=== PATIENT | female | born 1935 | race Caucasian/White ===

== ENCOUNTER 2018-12-14 10:28 | Inpatient (IN) | payer MEDICARE, OTHER ==
[~2018-12-14] VITALS: Ht 162.6 cm; Wt 68.5 kg
--- NOTE | 2018-12-14 10:40 | NUR ---
aaox3, came to er c/o RLQ abdominal pain since yesterday. Also c/o right upper back pain. RR is even and unlabored with NAD noted. Skin is warm and dry. Awaiting MD for eval.
[2018-12-14 11:14] LABS: APPEARANCE,URINE Clear (CLEAR); BILIRUBIN,URINE Negative (NEGATIVE); BLOOD, URINE Small Ery/uL (NEGATIVE); COLOR,URINE Yellow (YELLOW); KETONES,URINE Negative (NEGATIVE); LEUKOCYTE ESTERASE ,URINE Negative (NEGATIVE); NITRITE, URINE Negative (NEGATIVE); PROTEIN,URINE 100 mg/dl (NEGATIVE); UGLUCOSE Negative (NEGATIVE); UROBILINOGEN,URINE 0.2 EU/dL (0.2)
[2018-12-14 11:18] LABS: BASOPHILS % (AUTO) 0.2 % (0.0-2.0); EOSINOPHILS % (AUTO) 0.1 % (0.0-6.0); HEMATOCRIT 37 % (33-45); HEMOGLOBIN 12.1 g/dL (11.5-14.8); LYMPHOCYTES # (AUTO) 1.8 /CMM (0.8-4.8); LYMPHOCYTES % (AUTO) 11.2 % (20.0-44.0); MEAN CORPUSCULAR HGB CONC 33 g/dl (31.0-36.0); MEAN CORPUSCULAR VOLUME 95 fL (82-100); MONOCYTES # (AUTO) 1.1 /CMM (0.1-1.30); MONOCYTES % (AUTO) 6.6 % (2.0-12.0); NEUTROPHILS # (AUTO) 13.5 /CMM (1.8-8.9); NEUTROPHILS % (AUTO) 81.9 % (43.0-81.0); PLATELET COUNT (AUTO) 179 /CMM (150-450); RED BLOOD CELL COUNT(AUTO) 3.89 MIL/uL (4.0-5.2); WHITE BLOOD COUNT (AUTO) 16.5 K/uL (4.3-11.0)
[2018-12-14 11:24] LABS: BACTERIA,URINE Rare /HPF (None Seen); SQUAMOUS EPITHELIAL CELL,UR Moderate /HPF (None Seen); WBC,URINE NONE SEEN /HPF (0-3)
[2018-12-14 11:30] LABS: CALCIUM, SERUM 10.6 mg/dL (8.5-10.1); CARBON DIOXIDE 26 mmol/L (21-32); CHLORIDE 103 mmol/L (98-107); CREATININE 1.6 mg/dL (0.6-1.3); GLUCOSE 145 mg/dL (74-106); POTASSIUM 4.5 mmol/L (3.5-5.1); SODIUM SERUM 137 mmol/L (136-145); UREA NITROGEN, BLOOD 25 mg/dL (7-18)
[2018-12-14 11:36] LABS: ALANINE AMINOTRANSFERASE 30 U/L (12-78); ALBUMIN 3.7 g/dL (3.4-5.0); ALKALINE PHOSPHATASE 92 U/L (46-116); ASPARTATE AMINOTRANSFERASE 43 U/L (15-37); BILIRUBIN,DIRECT 0.3 mg/dL (0.0-0.2); TOTAL PROTEIN, SERUM 7.3 g/dL (6.4-8.2)
[2018-12-14 11:56] LABS: LIPASE 18592 U/L (73-393)
--- NOTE | 2018-12-14 12:55 | NUR ---
CALLED NURSING SUP. FOR MS BED
[2018-12-14] MEDS ORDERED: ZOLPIDEM TARTRATE 5 MG TABLET PO PRN (13:00)
[2018-12-14] MEDS ORDERED: HYDROCODONE/APAP 5/325MG 1 EACH TABLET PO PRN (13:00)
[2018-12-14] MEDS ORDERED: MAGNESIUM HYDROXIDE 30 ML UDC PO PRN (13:00)
[2018-12-14] MEDS ORDERED: MAG HYDROX/AL HYDROX/SIMETH 30 ML UDC PO PRN (13:00)
[2018-12-14] MEDS ORDERED: Z GUARD REMEDY 2 OZ OINT TP PRN (13:00)
[2018-12-14] MEDS ORDERED: ACETAMINOPHEN 325 MG TABLET PO PRN (13:00)
[2018-12-14] MEDS ORDERED: IV NS 0.9% 1,000 ML BAG IV ONE (13:00)
[2018-12-14] MEDS ORDERED: ALEN70TA3 PO (13:18)
[2018-12-14] MEDS ORDERED: VALS80TA2 PO (13:18)
[2018-12-14] MEDS ORDERED: LEVO100T9 PO (13:18)
[2018-12-14] MEDS ORDERED: ROSU10TA28 PO (13:18)
[2018-12-14] MEDS ORDERED: AMLO2.5T2 PO (13:18)
[2018-12-14] MEDS ORDERED: CARV6.252 PO (13:18)
[2018-12-14] MEDS ORDERED: HYDR-3976 PO (13:18)
[2018-12-14] MEDS ORDERED: ALLO300T2 PO (13:18)
--- NOTE | 2018-12-14 13:19 | NUR ---
REPORT GIVEN TO SILVER RAYA FOR SERGEY MS [id number]
[2018-12-14] MEDS: IV NS 0.9% 1,000 ML IV SCH ×2 (13:54→23:08)
--- NOTE | 2018-12-14 13:55 | NUR ---
RN MS NOTES Patient received on room air, no sob or ventilatory distress noted. Patient a/o x4. Patient states that she is "not in too much pain". Vital signs stable. Patient's call light within reach, safety measures in place.
[2018-12-14 14:00] VITALS: BP 159/83
[2018-12-14 16:00] VITALS: BP 148/76
[2018-12-14] MEDS ORDERED: PANTOPRAZOLE 40 MG VIAL IV SCH (17:00)
[2018-12-14] MEDS ORDERED: LORAZEPAM INJ 2 MG/ML VIAL IV ONE (17:30)
[2018-12-14 17:32] LABS: BASOPHILS % (AUTO) 0.2 % (0.0-2.0); EOSINOPHILS % (AUTO) 0.3 % (0.0-6.0); HEMATOCRIT 33 % (33-45); HEMOGLOBIN 11.2 g/dL (11.5-14.8); LYMPHOCYTES # (AUTO) 1.9 /CMM (0.8-4.8); LYMPHOCYTES % (AUTO) 13.2 % (20.0-44.0); MEAN CORPUSCULAR HGB CONC 34 g/dl (31.0-36.0); MEAN CORPUSCULAR VOLUME 92 fL (82-100); MONOCYTES # (AUTO) 1.1 /CMM (0.1-1.30); MONOCYTES % (AUTO) 7.6 % (2.0-12.0); NEUTROPHILS # (AUTO) 11.2 /CMM (1.8-8.9); NEUTROPHILS % (AUTO) 78.7 % (43.0-81.0); PLATELET COUNT (AUTO) 155 /CMM (150-450); RED BLOOD CELL COUNT(AUTO) 3.58 MIL/uL (4.0-5.2); WHITE BLOOD COUNT (AUTO) 14.3 K/uL (4.3-11.0)
[2018-12-14 17:49] LABS: ALBUMIN 3.3 g/dL (3.4-5.0); BILIRUBIN,DIRECT 0.2 mg/dL (0.0-0.2); BILIRUBIN,TOTAL 0.8 mg/dL (0.2-1.0); TOTAL PROTEIN, SERUM 6.5 g/dL (6.4-8.2)
[2018-12-14] MEDS ORDERED: ZOSYN IVPB 3.375 G in IV D5W 50ml IV ONE (18:00)
--- NOTE | 2018-12-14 19:09 | NUR ---
RN CLOSING NOTES Patient is back from her CT scan of her abdomen pelvis, patient was given ativan before the procedure. Patient is now back comfortably in her room, no sob or ventilatory distress noted. Patient remains on room air and has her call light in reach. Safety measures in place.
--- NOTE | 2018-12-14 19:30 | NUR ---
MS/RN OPENING NOTES PT RECEIVED AWAKE, USING HER TABLET. ON ROOM AIR, BREATHING EVEN AND UNLABORED. NO C/O OF SOB OR PAIN AT THIS TIME. TYLENOL AND ATIVAN GIVEN EARLIER WAS EFFECTIVE. IV TO LEFT HAND PATENT AND INTACT RUNNING IVF ORDERED. BED IN LOW/LOCKED POSITION WITH CALL LIGHT IN REACH, BILATERAL UPPER SIDE RAILS IN PLACE AND HOB ELEVATED. WILL CONTINUE TO MONITOR
[2018-12-14 20:00] VITALS: BP 111/64
[2018-12-14] MEDS: ONDANSETRON HCL/PF 4 MG/2 ML VIAL IVP PRN (23:15)
[2018-12-14] MEDS: HYDROMORPHONE 1 MG/1 ML DISP.SYRIN IV PRN (23:15)
--- NOTE | 2018-12-15 | NUR ---
MS/RN NOTES BRAYDON ANDREWS FOLLOWED UP WITH MRCP RESULTS. PROVIDED AM CBC AND LATEST VITALS. PT WITH SLIGHTLY DISTENDED, TENDER AND FIRM ABDOMEN. WITH ORDERS TO CONSULT DR. WILHELM FOR SURGERY FIRST THING IN THE AM. ALSO TO MAKE SURE PT IS ON PROTONIX 40MG IV BID. ORDERED NOTED AND CHANGED IN EMAR, ALSO NOTIFIED SHABNAM ANDREWS THAT THERE IS A SHORTAGE OF IV PROTONIX PER PHARMACY.
[2018-12-15] MEDS: PIPERACILLIN /TAZOBACTAM 3.375 G in IV D5W 100 ML IV SCH ×3 (02:22→18:24)
--- NOTE | 2018-12-15 05:56 | NUR ---
NOTIFIED DR. WILHELM FOR SURGICAL CONSULT PER REQUEST OF BRAYDON ANDREWS.
[2018-12-15 06:33] LABS: BASOPHILS % (AUTO) 0.1 % (0.0-2.0); EOSINOPHILS % (AUTO) 0.4 % (0.0-6.0); HEMATOCRIT 35 % (33-45); HEMOGLOBIN 11.7 g/dL (11.5-14.8); LYMPHOCYTES # (AUTO) 1.4 /CMM (0.8-4.8); LYMPHOCYTES % (AUTO) 9.7 % (20.0-44.0); MEAN CORPUSCULAR HGB CONC 34 g/dl (31.0-36.0); MEAN CORPUSCULAR VOLUME 94 fL (82-100); MONOCYTES % (AUTO) 6.9 % (2.0-12.0); NEUTROPHILS # (AUTO) 11.7 /CMM (1.8-8.9); NEUTROPHILS % (AUTO) 82.9 % (43.0-81.0); PLATELET COUNT (AUTO) 158 /CMM (150-450); RED BLOOD CELL COUNT(AUTO) 3.72 MIL/uL (4.0-5.2); WHITE BLOOD COUNT (AUTO) 14.1 K/uL (4.3-11.0)
[2018-12-15 06:35] LABS: CHOLESTEROL 95 mg/dL (<200); HDL CHOLESTEROL 42 mg/dL (40-60); LDL 47 mg/dL (0-99); TRIGLYCERIDES 74 mg/dL (30-150)
[2018-12-15] MEDS: HYDROMORPHONE 1 MG/1 ML DISP.SYRIN IV PRN ×4 (06:38→21:51)
[2018-12-15 06:43] LABS: CALCIUM, SERUM 9.3 mg/dL (8.5-10.1); CHLORIDE 107 mmol/L (98-107); CREATININE 1.5 mg/dL (0.6-1.3); GLUCOSE 116 mg/dL (74-106); MAGNESIUM 1.6 mg/dL (1.8-2.4); PHOSPHORUS 3.1 mg/dL (2.5-4.9); POTASSIUM 4.1 mmol/L (3.5-5.1); SODIUM SERUM 142 mmol/L (136-145); UREA NITROGEN, BLOOD 20 mg/dL (7-18)
--- NOTE | 2018-12-15 06:56 | NUR ---
MS/RN CLOSING NOTES PT ASLEEP, OPENS EYES TO NAME. PLACED ON 2L O2 VIA NC, BREATHING EVEN AND UNLABORED. DENIES SOB, PAIN 8/10 TO ABDOMEN. PRN PAIN MEDS PROVIDED. BRAYDON AWARE OF MRCP AND ASKED TO NOTIFY DR. WILHELM FOR SURGICAL CONSULT THIS AM, "ITS URGENT". SPOKE TO DR. WILHELM THIS AM AND AWARE TO COME SEE THE PT EARLY TODAY. KEPT NPO. DENIES FLATUS, ABDOMEN TENDER, SLIGHTLY DISTENDED AND SLIGHTLY FIRM. AMBULATORY TO BATHROOM WITH CANE AND STANDBY ASSIST. IV TO LEFT HAND PATENT AND INTACT RUNNING IVF ORDERED. KEPT COMFORTABLE DURING SHIFT. ALL NEEDS MET. BED REMAINS IN LOW/LOCKED POSITION WITH CALL LIGHT IN REACH, BILATERAL UPPER SIDE RAILS IN PLACE AND HOB ELEVATED. WILL ENDORSE TO DAY SHIFT RN SERGEY.
[2018-12-15 06:58] LABS: CARBON DIOXIDE 25 mmol/L (21-32)
[2018-12-15 08:00] VITALS: BP 147/76
--- NOTE | 2018-12-15 08:42 | NUR ---
RN MS NOTES PT IN BED, AWAKE, ALERT AND ORIENTED, STATED THAT SHE HAS ABDOMINAL PAIN WHEN SHE AMBULATES, IV FLUIDS INFUSING WELL, RECEIVED CALL FROM DR. WILHELM, PLAN OF CARE DISCUSSED FOR PT, PT INFORMED, PT SEEN BY DR. KAPOOR, PLAN OF CARE DISCUSSED WITH PT, VERBALIZED UNDERSTANDING, CALL LIGHT DENEEN HERRMANN, NEEDS ATTENDED.
[2018-12-15] MEDS: Magnesium 1GM/D5W 100ML PREMIX 100 ML IV SCH ×2 (09:24→10:28)
[2018-12-15] MEDS: PANTOPRAZOLE 40 MG VIAL IV SCH ×2 (12:19→21:44)
[2018-12-15] MEDS: ONDANSETRON HCL/PF 4 MG/2 ML VIAL IVP PRN (14:00)
[2018-12-15 16:00] VITALS: BP 144/80
--- NOTE | 2018-12-15 18:07 | NUR ---
RN MS CLOSING NOTES Patient remains lying down most of the time, patient gets up to go to the restroom using her cane, minimal assistance needed but would be more safe if someone watches her ambulate going to the restroom. Patient stated that pain is more controlled but still exist. Patient also states that her nausea is relieved by medications. Patient aware of the needs to be transferred to a different hospital because of the ERCP procedure that cannot be done here. Patient remains NPO, vital signs stable. Patients call light within reach and all safety measures are on.
--- NOTE | 2018-12-15 19:00 | NUR ---
RN MS OPENING NOTES RECEIVED PATIENT IN BED AWAKE ALERT AND ORIENTED X 4 RESPIRATIONS EVEN AND UNLABORED WITH EQUAL RISE AND FALL OF CHEST DENIES ANY PAIN OR DISCOMFORT, IV SITE TO LEFT HAND #20 G INTACT AND PATENT,NO REDNESS, NO INFILTRATION PRESENT, PATIENT IS NPO, ORIENTED TO STAFF AND CALL LIGHT ALL NEEDS ATTENDED, REMAINS COMFORTABLE WILL CONTINUE TO MONITOR.
[2018-12-15 20:00] VITALS: BP 121/69
--- NOTE | 2018-12-15 21:44 | NUR ---
SILVER MS NOTES PROTONIX IV GIVEN AT THIS TIME, PER REPORT PROTONIX SHORTAGE BUT MEDICATION WILL BE SENT IN [facility].
--- NOTE | 2018-12-15 21:51 | NUR ---
RN MS NOTES PATIENT COMPLAIN OF PAIN TO ABDOMEN AREA 5/10 CONSTANT PAIN REQUESTING FOR DILAUDID, PRN GIVEN 0.25MG GIVEN AND REST WASTED AND VERIFIED WITH ANOTHER RN VS WNL.
[2018-12-16] MEDS: HYDROMORPHONE 1 MG/1 ML DISP.SYRIN IV PRN ×4 (02:43→23:18)
[2018-12-16] MEDS: PIPERACILLIN /TAZOBACTAM 3.375 G in IV D5W 100 ML IV SCH ×3 (02:44→18:25)
[2018-12-16] MEDS: IV NS 0.9% 1,000 ML IV PRN (02:44)
[2018-12-16 06:28] LABS: BASOPHILS % (AUTO) 0.1 % (0.0-2.0); EOSINOPHILS % (AUTO) 0.1 % (0.0-6.0); HEMATOCRIT 36 % (33-45); HEMOGLOBIN 12.2 g/dL (11.5-14.8); LYMPHOCYTES # (AUTO) 1.4 /CMM (0.8-4.8); LYMPHOCYTES % (AUTO) 6.7 % (20.0-44.0); MEAN CORPUSCULAR HGB CONC 34 g/dl (31.0-36.0); MEAN CORPUSCULAR VOLUME 93 fL (82-100); MONOCYTES # (AUTO) 1.4 /CMM (0.1-1.30); MONOCYTES % (AUTO) 6.8 % (2.0-12.0); NEUTROPHILS # (AUTO) 17.7 /CMM (1.8-8.9); NEUTROPHILS % (AUTO) 86.3 % (43.0-81.0); PLATELET COUNT (AUTO) 164 /CMM (150-450); RED BLOOD CELL COUNT(AUTO) 3.88 MIL/uL (4.0-5.2); WHITE BLOOD COUNT (AUTO) 20.5 K/uL (4.3-11.0)
[2018-12-16 06:46] LABS: CALCIUM, SERUM 9.2 mg/dL (8.5-10.1); CARBON DIOXIDE 25 mmol/L (21-32); CHLORIDE 107 mmol/L (98-107); CREATININE 1.7 mg/dL (0.6-1.3); GLUCOSE 128 mg/dL (74-106); MAGNESIUM 2.1 mg/dL (1.8-2.4); POTASSIUM 3.9 mmol/L (3.5-5.1); SODIUM SERUM 141 mmol/L (136-145); UREA NITROGEN, BLOOD 20 mg/dL (7-18)
--- NOTE | 2018-12-16 07:05 | NUR ---
RN MS CLOSING NOTES PATIENT IN BED AWAKE ALERT AND ORIENTED X 4 RESPIRATIONS EVEN AND UNLABORED WITH EQUAL RISE AND FALL OF CHEST DENIES ANY PAIN OR DISCOMFORT, IV SITE TO LEFT HAND #20 G INTACT AND PATENT,NO REDNESS, NO INFILTRATION PRESENT, IVF RUNNING ORDERED, PATIENT IS NPO, CALL LIGHT KEPT WITHIN REACH, ALL NEEDS ATTENDED, REMAINS COMFORTABLE WILL CONTINUE TO MONITOR AND ENDORSE TO NEXT SHIFT.
[2018-12-16 07:20] LABS: LIPASE 1825 U/L (73-393)
--- NOTE | 2018-12-16 08:00 | NUR ---
m/s university tutor: notes received pt in bed awake, a/ox4. pt remains npo, pending transfer to another acute hospital for ercp. case management making arrangement. no c/o pain at this time. instructed to call for assistance. will monitor.
[2018-12-16 08:23] VITALS: BP 132/68
[2018-12-16] MEDS: PANTOPRAZOLE 40 MG VIAL IV SCH ×2 (08:45→18:26)
--- NOTE | 2018-12-16 09:21 | NUR ---
m/s detasseler: notes c/o 01/08 abdominal pain, medicated with dilaudid 0.25mg ivp by rn. instructed to call for assistance. daughter at bedside. will monitor.
--- NOTE | 2018-12-16 09:51 | NUR ---
m/s sushi chef: notes pt sounds asleep at this time. no distress noted. daughter remains at bedside. will monitor.
--- NOTE | 2018-12-16 14:44 | NUR ---
m/s berry picker: notes c/o 01/08 abdominal pain, medicated with dilaudid 0.25mg ivp by rn. instructed to call for assistance. daughter remains at bedside. will monitor.
--- NOTE | 2018-12-16 15:14 | NUR ---
m/s overlock elastic attacher: notes pt sounds asleep at this time. no distress noted. daughter remains at bedside. will monitor.
--- NOTE | 2018-12-16 17:35 | NUR ---
m/s collaborating supervising physician: notes dr. maldonado on the phone and informed md that pt home meds hasn't been reconciled, pt remains npo with order to hold all meds for now. orders carried out and acknowledged.
--- NOTE | 2018-12-16 19:00 | NUR ---
m/s family practice physician assistant: notes resting comfortable in bed with no distress noted. needs attended. instructed to call for assistance. will continue to monitor.
--- NOTE | 2018-12-16 19:00 | NUR ---
RN MS OPENING NOTES RECEIVED PATIENT IN BED AWAKE ALERT AND ORIENTED X 4 RESPIRATIONS EVEN AND UNLABORED WITH EQUAL RISE AND FALL OF CHEST DENIES ANY PAIN OR DISCOMFORT, IV SITE TO RIGHT HAND #20 G INTACT AND PATENT,NO REDNESS, NO INFILTRATION PRESENT, PATIENT IS NPO, ORIENTED TO STAFF AND CALL LIGHT ALL NEEDS ATTENDED, REMAINS COMFORTABLE WILL CONTINUE TO MONITOR.
[2018-12-16 20:00] VITALS: BP_SYST 132; BP_SYST 135; BP_DIAS 68; BP_DIAS 83
--- NOTE | 2018-12-16 23:18 | NUR ---
RN MS NOTES PATIENT REQUESTING FOR DILAUDID 03/10 TO RIGHT ABDOMEN, DILAUDID 0.25MG GIVEN ORDERED, THE REST WASTED WITH ANOTHER RN AND VERIFIED. VS WNL
[2018-12-17] MEDS: PIPERACILLIN /TAZOBACTAM 3.375 G in IV D5W 100 ML IV SCH ×3 (02:26→17:10)
--- NOTE | 2018-12-17 05:08 | NUR ---
RN MS NOTES PATIENT COMPLAINT OF FEELING OF INDIGESTION BURNING FEELING IN STOMACH REQUESTING TO ASK MD FOR POSSIBLE MEDICATION FOR RELIEF. KEON RICO MADE AWARE PATIENT DX ACUTE PANCREATITIS, NPO, WITH NEW ORDER FOR 1 TAB TUMS PO X1 FOR INDIGESTION PATIENT MADE AWARE.
[2018-12-17] MEDS ORDERED: CALCIUM CARBONATE 500 MG TAB.CHEW PO ONE (05:30)
[2018-12-17 06:47] LABS: BASOPHILS % (AUTO) 0.3 % (0.0-2.0); EOSINOPHILS % (AUTO) 0.1 % (0.0-6.0); HEMATOCRIT 32 % (33-45); HEMOGLOBIN 10.9 g/dL (11.5-14.8); LYMPHOCYTES # (AUTO) 1.2 /CMM (0.8-4.8); LYMPHOCYTES % (AUTO) 6.1 % (20.0-44.0); MEAN CORPUSCULAR HGB CONC 34 g/dl (31.0-36.0); MEAN CORPUSCULAR VOLUME 92 fL (82-100); MONOCYTES # (AUTO) 1.3 /CMM (0.1-1.30); NEUTROPHILS # (AUTO) 16.4 /CMM (1.8-8.9); NEUTROPHILS % (AUTO) 86.5 % (43.0-81.0); PLATELET COUNT (AUTO) 177 /CMM (150-450); RED BLOOD CELL COUNT(AUTO) 3.49 MIL/uL (4.0-5.2)
[2018-12-17 06:59] LABS: CALCIUM, SERUM 9.2 mg/dL (8.5-10.1); CARBON DIOXIDE 24 mmol/L (21-32); CHLORIDE 110 mmol/L (98-107); CREATININE 1.5 mg/dL (0.6-1.3); GLUCOSE 129 mg/dL (74-106); POTASSIUM 3.5 mmol/L (3.5-5.1); SODIUM SERUM 145 mmol/L (136-145); UREA NITROGEN, BLOOD 23 mg/dL (7-18)
--- NOTE | 2018-12-17 06:59 | NUR ---
RN MS CLOSING NOTES RECEIVED PATIENT IN BED AWAKE ALERT AND ORIENTED X 4 RESPIRATIONS EVEN AND UNLABORED WITH EQUAL RISE AND FALL OF CHEST DENIES ANY PAIN OR DISCOMFORT, IV SITE TO RIGHT HAND #20 G INTACT AND PATENT,NO REDNESS, NO INFILTRATION PRESENT, PATIENT IS NPO,IVF RUNNING ORDERED, [facility] CALLED INFORMED NO BED AVAILABLE AT THIS TIME, CALL LIGHT KEPT WITHIN REACH, SAFETY PRECAUTIONS IN PLACE,LOW BED AND LOCKED, CANE WITHIN REACH, ALL NEEDS ATTENDED, REMAINS COMFORTABLE WILL CONTINUE TO MONITOR AND ENDORSE TO NEXT SHIFT.
--- NOTE | 2018-12-17 07:30 | NUR ---
MS/RN - Assessment Patient in bed awake, A/O x 4, afebrile, denies abdominal pain at this time, no c/o n/v, remain NPO. IVF NS at 125 ml/hr infusing well on the RFA with no signs of infiltration. Still waiting for bed at [facility] for ERCP, case management making arrangement. Fall precautions maintained. Will continue with current medical management.
[2018-12-17 08:00] VITALS: BP 145/76
[2018-12-17] MEDS: HYDROMORPHONE 1 MG/1 ML DISP.SYRIN IV PRN ×3 (08:57→21:11)
[2018-12-17] MEDS: ONDANSETRON HCL/PF 4 MG/2 ML VIAL IVP PRN ×2 (08:57→15:07)
--- NOTE | 2018-12-17 09:00 | NUR ---
MS/RN - Notes Rounds made, no needs at this time, due meds given. Daughter Mey at bedside updated on plan of care. Still awaiting for bed at [facility].
[2018-12-17] MEDS: IV NS 0.9% 1,000 ML IV PRN (09:12)
[2018-12-17] MEDS: PANTOPRAZOLE 40 MG VIAL IV SCH ×2 (09:12→16:16)
--- NOTE | 2018-12-17 11:30 | NUR ---
MS/RN - Notes Patient resting comfortably, all needs attended, will continue to monitor.
--- NOTE | 2018-12-17 15:10 | NUR ---
MS/RN - Notes Patient c/o abdominal pain 8/10 and nausea, medicated with Dilaudid 0.25 mg IVP and Zofran. Will reassess after 30 mins.
[2018-12-17 16:00] VITALS: BP 146/72
--- NOTE | 2018-12-17 17:37 | NUR ---
MS/RN - End of shift summary No significant change in condition seen, remain afebrile, abdominal pain and nausea relieved by PRN Dilaudid 0.25mg IV and Zofran. Continue IVF NS at 125 ml/hr to maintain hydration and Zosyn for acute pancreatitis. Per case management, still no bed availability at [facility], will continue to work on it. Patient and daughter Mey updated on plan of care. Will continue with current medical management
--- NOTE | 2018-12-17 19:10 | NUR ---
MS RN OPENING NOTES Received patient A/O X 4, awake on Ugarte's position on bed. With patent peripheral IV line infusing well as ordered, no s/sx of infiltration noted. Patient claimed with controlled pain at right abdomen but wants to take the medication later. On RA, no SOB/respiratory distress noted. Kept bed low and locked. Call light at bedside. Will continue to monitor accordingly.
[2018-12-17 20:00] VITALS: BP 140/75
--- NOTE | 2018-12-18 01:00 | NUR ---
MS RN NOTES 0045 Patient complaint pain. Explained to patient Diluadid 0.25mg is not due yet. Consulted MD on rounds for IV pain meds as patient is kept on NPO but MD said it's ok to give as patient is NPO except meds. Prepared [place] 5mg as ordered, but patient refused to take any PO meds. Explained to patient that MD has been notified and with instructions ok to take PO meds but patient insist to refused. Offered to patient to wait until Dilaudid is due. 0100 Rechecked patient, noted asleep at this time. Will continue to monitor accordingly.
[2018-12-18] MEDS: IV NS 0.9% 1,000 ML IV PRN (01:53)
[2018-12-18] MEDS: PIPERACILLIN /TAZOBACTAM 3.375 G in IV D5W 100 ML IV SCH ×3 (01:53→18:48)
[2018-12-18] MEDS: HYDROMORPHONE 1 MG/1 ML DISP.SYRIN IV PRN ×4 (04:57→17:53)
--- NOTE | 2018-12-18 06:41 | NUR ---
MS RN CLOSING NOTES Patient asleep on bed, easily awaken. No new unusualities noted. Medicated for pain, noted effective with Diluadid 0.25mg. All nursing needs attended. No new complaints made. Able to ambulate to bathroom independently with single point cane. Kept bed low and locked, siderails up, call light at bedside. Awaiting for transfer to [facility]. Endorsed to the next shift.
[2018-12-18 06:42] LABS: BASOPHILS # (AUTO) 0.1 /CMM (0.0-0.2); BASOPHILS % (AUTO) 0.3 % (0.0-2.0); EOSINOPHILS % (AUTO) 0.3 % (0.0-6.0); HEMATOCRIT 31 % (33-45); HEMOGLOBIN 10.7 g/dL (11.5-14.8); LYMPHOCYTES # (AUTO) 1.4 /CMM (0.8-4.8); LYMPHOCYTES % (AUTO) 8.5 % (20.0-44.0); MEAN CORPUSCULAR HGB CONC 35 g/dl (31.0-36.0); MEAN CORPUSCULAR VOLUME 93 fL (82-100); MONOCYTES # (AUTO) 1.3 /CMM (0.1-1.30); MONOCYTES % (AUTO) 7.8 % (2.0-12.0); NEUTROPHILS # (AUTO) 13.7 /CMM (1.8-8.9); NEUTROPHILS % (AUTO) 83.1 % (43.0-81.0); PLATELET COUNT (AUTO) 191 /CMM (150-450); RED BLOOD CELL COUNT(AUTO) 3.35 MIL/uL (4.0-5.2); WHITE BLOOD COUNT (AUTO) 16.6 K/uL (4.3-11.0)
[2018-12-18 06:47] LABS: CARBON DIOXIDE 25 mmol/L (21-32); CHLORIDE 113 mmol/L (98-107); CREATININE 1.4 mg/dL (0.6-1.3); GLUCOSE 108 mg/dL (74-106); LIPASE 1097 U/L (73-393); POTASSIUM 3.2 mmol/L (3.5-5.1); SODIUM SERUM 147 mmol/L (136-145); UREA NITROGEN, BLOOD 24 mg/dL (7-18)
[2018-12-18 08:00] VITALS: BP 147/75
[2018-12-18] MEDS ORDERED: POTASSIUM CHLORIDE 20 MEQ TAB.PRT.SR PO ONE (09:00)
[2018-12-18] MEDS: PANTOPRAZOLE 40 MG VIAL IV SCH ×2 (10:41→17:29)
[2018-12-18] MEDS: IV D5/0.45 NACL 1,000 ML IV PRN (12:03)
--- NOTE | 2018-12-18 12:30 | NUR ---
INSULIN HELD AT LUNCH-PT. HAS BEEN NPO AND JUST GOT BACK FROM SURGERY. Addendum: 12/18/18 at 2031 by RU MITTAL RN ABOVE NOTE ON INCORRECT PT.
[2018-12-18 16:00] VITALS: BP 176/93
[2018-12-18 16:15] VITALS: BP 140/90
--- NOTE | 2018-12-18 16:15 | NUR ---
PER WELDER FITTER REPORT BP ELEVATED,RECHECKED BY RN WITH MANUAL CUFF.SEE GRAPHIC.
--- NOTE | 2018-12-18 18:00 | NUR ---
POTASSIUM REPLACEMENT DONE,ON CLEAR LIQ. DIET AND SHE STATES PAIN INCREASES AFTER EATING.UP TO BATHRM. OFTEN,TOLERATES ACTIVITY.MED. X3 WITH DILAUDID FOR ABD. PAIN.DTR. AT BEDSIDE MOST OF DAY.
--- NOTE | 2018-12-18 19:42 | NUR ---
MS/RN OPENING NOTES RECEIVED PATIENT IN BED, ALERT, ORIENTED X3 ABLE TO VERBALIZE NEEDS,ON 2L OXYGEN VIA NC, ABLE TO PARTICIPATED WITH CARE, DISCUSSED PLAN OF CARE, SKIN WARM TO TOUCH, DENIES PAIN, STOMACH WITH SOME DISTENTION BUT DENIES PAIN, ON IV D5 1/2 NS AT 50CC/HR, WILL CONTINUE TO MONITOR, CALL LIGHTS WITHIN REACH, BED LOCKED. RECEIVED ENDORSEMENT FROM AM RN FOR SERGEY.
[2018-12-18 20:00] VITALS: BP_SYST 130; BP_SYST 153; BP_DIAS 70; BP_DIAS 83
--- NOTE | 2018-12-19 00:31 | NUR ---
MS/RN NOTES PATIENT ASSISTED TO BATHROOM SAFELY, NO PAIN REPORTED, IV SITE ON RIGHT WRIST CHECEKD FOR PATENCY/ WILL CONTIUE TO MONITOR.
[2018-12-19] MEDS: HYDROMORPHONE 1 MG/1 ML DISP.SYRIN IV PRN ×3 (01:27→16:17)
[2018-12-19] MEDS: PIPERACILLIN /TAZOBACTAM 3.375 G in IV D5W 100 ML IV SCH ×3 (01:28→17:36)
[2018-12-19] MEDS: ONDANSETRON HCL/PF 4 MG/2 ML VIAL IVP PRN ×2 (01:37→08:48)
--- NOTE | 2018-12-19 01:45 | NUR ---
hi reported pain in abdomen severe. di;audid given, also zofran for nausea will monitor.
[2018-12-19 06:33] LABS: BASOPHILS % (AUTO) 0.2 % (0.0-2.0); EOSINOPHILS % (AUTO) 0.2 % (0.0-6.0); HEMATOCRIT 32 % (33-45); HEMOGLOBIN 10.6 g/dL (11.5-14.8); LYMPHOCYTES # (AUTO) 1.3 /CMM (0.8-4.8); MEAN CORPUSCULAR HGB CONC 34 g/dl (31.0-36.0); MEAN CORPUSCULAR VOLUME 92 fL (82-100); MONOCYTES # (AUTO) 1.7 /CMM (0.1-1.30); MONOCYTES % (AUTO) 9.3 % (2.0-12.0); NEUTROPHILS # (AUTO) 15.4 /CMM (1.8-8.9); NEUTROPHILS % (AUTO) 83.3 % (43.0-81.0); PLATELET COUNT (AUTO) 194 /CMM (150-450); RED BLOOD CELL COUNT(AUTO) 3.43 MIL/uL (4.0-5.2); WHITE BLOOD COUNT (AUTO) 18.5 K/uL (4.3-11.0)
[2018-12-19 06:47] LABS: ALANINE AMINOTRANSFERASE 29 U/L (12-78); ALBUMIN 2.4 g/dL (3.4-5.0); ALKALINE PHOSPHATASE 189 U/L (46-116); ASPARTATE AMINOTRANSFERASE 39 U/L (15-37); BILIRUBIN,TOTAL 1.1 mg/dL (0.2-1.0); CARBON DIOXIDE 26 mmol/L (21-32); CHLORIDE 110 mmol/L (98-107); CREATININE 1.3 mg/dL (0.6-1.3); GLUCOSE 135 mg/dL (74-106); MAGNESIUM 1.8 mg/dL (1.8-2.4); PHOSPHORUS 1.8 mg/dL (2.5-4.9); POTASSIUM 3.3 mmol/L (3.5-5.1); SODIUM SERUM 144 mmol/L (136-145); TOTAL PROTEIN, SERUM 6.2 g/dL (6.4-8.2); UREA NITROGEN, BLOOD 17 mg/dL (7-18)
--- NOTE | 2018-12-19 06:51 | NUR ---
311-1MS/RN NOTES PATIENT ABLE TO SLEEP DURING THE NIGHTS, MONITORED FOR PAIN, ASSISTED FOR COMFORT AND SAFETY, ABLE TO VERBALZIED NEEDS. BED LOCKED, CALL LIGHTS WITHIN REACH WILL ENDORSE TO AM RN FOR SERGEY.
--- NOTE | 2018-12-19 06:55 | NUR ---
311-MS/RN NOTES PATIENT IV REMOVED, REDDENED, PATIENT REQUESTED TO EAT OATMEAL PRIOR TO PAIN MEDICATION AND REQUESTED TO HAVE DILAUDID IVP. PATIENT WITH ABDOMINAL PAIN ON CLEAR LIQUID DIET , WILL FOLLOW UP WITH MD FOR DIET.TO REINSERT IV LINE .
[2018-12-19 07:16] LABS: LIPASE 2686 U/L (73-393)
--- NOTE | 2018-12-19 07:46 | NUR ---
MS RN NOTES PATEIN IN BED RESTING NO SOB OR ACUTE DISTRESS NOTED. ALERT,ORIENTED X3. DENIES ANY PAIN OR DISCOMFORT AT THIS TIME. PERIPHERAL IV ON LEFT AC INTACT PATENT. BED IN LOW LOCKED POSITION. CALL LIGHT WITHIN REACH. WILL CONTINUE TO MONITOR.
[2018-12-19 08:00] VITALS: BP 153/84
[2018-12-19] MEDS: POTASSIUM PHOSPHATE MM 5 MMOL in IV D5W 100 ML IV SCH ×2 (09:35→10:32)
[2018-12-19] MEDS: PANTOPRAZOLE 40 MG VIAL IV SCH ×2 (09:36→17:36)
--- NOTE | 2018-12-19 15:00 | NUR ---
MS RN NOTES PATIENTS DAUGHTER STATES GI ANOINTMENT IS MADE FOR 12/19/2018 PATIENT NEEDS TO BE DISCHARGED AT 6AM TOMORROW MORNING TO MAKE TO GI ANOINTMENT . DR KAPOOR MADE AWARE GAVE DISCHARGE VERBAL ORDER TO DISCHARGE PATIENT TOMORROW AT 6AM TO SELF CARE AND FOLLOW UP WITH GI . NOTED AND CARRIED OUT.
[2018-12-19 16:02] VITALS: BP 156/78
--- NOTE | 2018-12-19 18:45 | NUR ---
MS RN NOTES PATIENT IN BED RESTING NO SOB OR ACUTE DISTRESS NOTED. ALL DUE MEDICATIONS ADMINISTERED. ALL NEEDS MET. WILL ENDORSE CARE TO PM SHIFT.
--- NOTE | 2018-12-19 19:33 | NUR ---
MS RN RECEIVE PT IN BED A/O X 4, RESPIRATIONS EVEN AND UNLABORED, NO SOB NOTED, NO DISTRESS, SAFETY MEASURES IN PLACE. WILL CONTINUE TO MONITOR.
[2018-12-19 20:00] VITALS: BP 126/74
[2018-12-19] MEDS: IV D5/0.45 NACL 1,000 ML IV PRN (21:13)
[2018-12-20] MEDS: PIPERACILLIN /TAZOBACTAM 3.375 G in IV D5W 100 ML IV SCH (01:48)
[2018-12-20] MEDS: HYDROMORPHONE 1 MG/1 ML DISP.SYRIN IV PRN (05:02)
--- NOTE | 2018-12-20 06:00 | NUR ---
VS BP 106/65 R 19 T 97.8 P 75 02 SAT 97% R.A
--- NOTE | 2018-12-20 06:28 | NUR ---
PATIENT DISCHARGE PATIENT LEFT AT 0622, PATIENT ON STABLE CONDITION NO S/S OF DISTRESS NOTED, NO CHEST PAIN, NO HEADACHE, NO NAUSEA AND VOMITING, NO COMPLAIN OF PAIN, VS STABLE, HEALTH EDUCATION AND EXIT CARE WAS PROVIDED, EDUCATION ABOUT DISEASE AND RISKS AND BENEFITS FOLLOW UP CARE PROVIDED, VERBALIZED UNDERSTANDING. DOCUMENTS WAS PROVIDED. CD OF CT SCAN PROVIDED. ALL BELONGINGS WAS TAKEN, PT LEFT VIA OWN TRANSPORTATION SPOT BILLING CLERK BY DAUGHTER BK PATIENT APPRECIATIVE TO NURSES AND THANKFUL.
== END 2018-12-20 06:28 | disposition home or self-care (01) | DRG 438 ==
LOC: ER 10:30 → MED 13:05
PROVIDERS: ADMIT Family Medicine; ATTEND Family Medicine
DX: K85.10 Biliary acute pancreatitis without necrosis or infection (principal); N17.0 Acute kidney failure with tubular necrosis; E78.5 Hyperlipidemia, unspecified; E86.0 Dehydration; I25.10 Atherosclerotic heart disease of native coronary artery without angina pectoris; E03.9 Hypothyroidism, unspecified; I10 Essential (primary) hypertension; Z96.651 Presence of right artificial knee joint; Z96.643 Presence of artificial hip joint, bilateral; D72.829 Elevated white blood cell count, unspecified; E83.52 Hypercalcemia; E78.00 Pure hypercholesterolemia, unspecified; K86.1 Other chronic pancreatitis; E80.6 Other disorders of bilirubin metabolism; K21.9 Gastro-esophageal reflux disease without esophagitis; M41.9 Scoliosis, unspecified; Z87.11 Personal history of peptic ulcer disease
CPT/HCPCS: 36415; 74181-TC; 76705-TC; 80048-TC; 80053-TC; 80061-TC; 80076-TC; 81000-TC; 82150-TC; 82247-TC; 82248-TC; 83690-TC; 83735-TC; 84100-TC; 85025-TC; 86301; 87081-TC; 94799-TC; C9113; G0378; J1170; J2060; J2405; J2543; J3475; J3490; J7030; J7060